=== PATIENT | female | born 1980 | race Caucasian/White ===

== ENCOUNTER 2023-08-23 10:21 | Emergency (ER) | payer OTHER | END 2023-08-23 13:13 | disposition home or self-care (01) | LOC: CSHERS 10:21 | DX: S00.11XA Contusion of right eyelid and periocular area, initial encounter (principal); S60.042A Contusion of left ring finger without damage to nail, initial encounter; W19.XXXA Unspecified fall, initial encounter | CPT/HCPCS: 70450; 70486; 72125 ==